=== PATIENT | female | born 1965 | race Caucasian/White ===

== ENCOUNTER 2019-03-20 11:53 | Day surgery (SDC) | payer OTHER ==
[~2019-03-20 11:53] MED LIST: ACETAMINOPHEN 1,000 MG/100 ML BTL IVPB ONE; CEFAZOLIN 2 Gram 2 GM/50 ML BAG IVPB SCH; MORPHINE SULFATE 4 MG/ML VIAL ONE
[2019-03-20] MEDS ORDERED: LIDOCAINE 2% MDV (20MG/ML) 20ML VIAL IV ONE (11:54)
[2019-03-20] MEDS ORDERED: HYDROMORPHONE HCL 2 MG/ML VIAL IV ONE (11:54)
[2019-03-20] MEDS ORDERED: ONDANSETRON HCL IV 4 MG/2 ML VIAL IVP ONE (11:54)
[2019-03-20] MEDS ORDERED: PROPOFOL 10 MG/ML VIAL IV ONE (11:54)
[2019-03-20] MEDS ORDERED: SEVOFLURANE 250 ML INH ONE (11:54)
[2019-03-20] MEDS ORDERED: MIDAZOLAM HCL 2MG/2ML VIAL IV ONE (11:54)
[2019-03-20] MEDS ORDERED: RINGERS SOLUTION,LACTATED 1,000 ML IV ONE (12:40)
[2019-03-20] MEDS ORDERED: METHYLPREDNISOLONE 40MG/VIAL IM ONE (14:15)
[2019-03-20] MEDS ORDERED: MORPHINE SULFATE 5 MG/ML VIAL IM ONE (14:15)
[2019-03-20] MEDS ORDERED: BUPIVACAINE 0.5% W/EPI MPF 30 ML VIAL SQ ONE (14:15)
--- NOTE | 2019-03-22 07:50 | Operative Note ---
DATE OF SURGERY: 03/20/2019 PREOPERATIVE DIAGNOSIS: Internal derangement of the right knee. POSTOPERATIVE DIAGNOSES: 1. 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 2. Flap tear involving the anterior horn of the medial meniscus. 3. Flap tear involving the anterior horn of the lateral meniscus. OPERATION: Right knee arthroscopy with partial medial and lateral meniscectomies. SURGEON: Manuel Campbell M.D. ANESTHESIA: General. PREPARATION: Chloraprep. INDIVIDUAL CONSIDERATIONS: None. PROCEDURE: The patient was taken to the operating room and placed supine on the operating room table. She had a successful induction with general anesthetic. Her right lower extremity was prepped and draped in the usual fashion. The patient had a superior lateral inflow cannula placed. The skin was infiltrated with 0.5% Marcaine with epinephrine prior. Next, serous effusion was drained. The knee was inflated with normal saline. An inferior medial and an inferior lateral portal were made in a similar fashion. The arthroscope was introduced through the inferior lateral portal up into the pouch. The patellofemoral compartment was basically essentially normal, maybe some small grade 3 change essentially in the notch and in the patella essentially, which was smoothed with a shaver. There was a fairly large impinging fat pad, which was debrided and a small plica debrided. No loose bodies were seen in the pouch near either gutter. Medially, she had an obvious unstable flap at the anterior horn of the medial meniscus, which was debrided back to a stable rim with a shaver. The articular cartilage and the remainder of the meniscus was normal. The notch and the cruciates were normal. In a similar fashion, she had a flap involving the anterior horn which was large in the lateral meniscus and this was debrided back to a stable rim with basket forceps and a shaver. The reminder of the meniscus, articular cartilage, and popliteus tendon were normal. The knee was then irrigated out with saline to remove loose floating debris. The portals were closed with gustavo. 20 mL of 0.25% plain Marcaine along with 4 mg of morphine and 40 mg of Depo-Medrol were injected into the knee and a sterile bulky compressive dressing was applied. The patient tolerated the procedures well. The needle and sponge counts were correct. Estimated blood loss was minimal. She was taken back to recovery in good condition. There were no complications. [facility]
== END 2019-03-20 15:08 | disposition home or self-care (01) ==
LOC: SUR 11:53
PROVIDERS: ATTEND Orthopaedic Surgery
DX: S83.281A Other tear of lateral meniscus, current injury, right knee, initial encounter (principal); S83.241A Other tear of medial meniscus, current injury, right knee, initial encounter; M22.41 Chondromalacia patellae, right knee; I10 Essential (primary) hypertension
CPT/HCPCS: 84132; J1030; J2270; J2405; J7120

== ENCOUNTER 2019-03-26 13:51 | Day surgery (SDC) | payer OTHER ==
[2019-03-26] MEDS ORDERED: PROPOFOL 10 MG/ML VIAL IV ONE (13:52)
[2019-03-26] MEDS ORDERED: MIDAZOLAM HCL 2MG/2ML VIAL IV ONE (13:52)
[2019-03-26] MEDS ORDERED: DEXAMETHASONE 4 MG/ML 1ML VIAL IVP ONE (13:52)
[2019-03-26] MEDS ORDERED: FENTANYL PF 100MCG/2ML VIAL IV ONE (13:52)
[2019-03-26] MEDS ORDERED: ONDANSETRON HCL IV 4 MG/2 ML VIAL IVP ONE (13:52)
[2019-03-26] MEDS ORDERED: LIDOCAINE 2% MDV (20MG/ML) 20ML VIAL IV ONE (13:52)
[2019-03-26] MEDS ORDERED: SEVOFLURANE 250 ML INH ONE (13:52)
[2019-03-26] MEDS ORDERED: RINGERS SOLUTION,LACTATED 1,000 ML IV ONE ×2 (14:10→15:02)
[2019-03-26] MEDS ORDERED: BUPIVACAINE 0.5% W/EPI MPF 30 ML VIAL SQ ONE (14:55)
[2019-03-26] MEDS ORDERED: HYDROCODONE/APAP 7.5/325MG TABLET PO ONE (15:31)
[2019-03-26] MEDS ORDERED: FENTANYL PF 100MCG/2ML VIAL IVP ONE ×2 (15:31)
--- NOTE | 2019-03-28 07:50 | Operative Note ---
DATE OF SURGERY: 03/26/2019 PREOPERATIVE DIAGNOSIS: Septic right knee. POSTOPERATIVE DIAGNOSIS: Septic right knee. OPERATION: Right knee arthroscopy with irrigation, debridement, and complete synovectomy. STAFF SURGEON: Manuel Campbell MD ANESTHESIA: General. PREPARATION: Chloraprep. INDIVIDUAL CONSIDERATIONS: None. PROCEDURE: The patient was taken to the operating room, placed supine on the operating room table. She had a successful induction of a general anesthetic. The right lower extremity was prepped and draped in the usual fashion. The patient's superolateral inflow cannula was used from the previous arthroscopy. Once in the knee, I drained purulent-appearing bloody fluid. The knee was then inflated with normal saline. An inferomedial and an inferolateral portal were made using the previous portals. The arthroscope was introduced through the inferolateral portal up into the pouch. There was [id number] synovitis, fibrinous debris and clot. The patellofemoral joint looked like it had previous grade 3 changes which had debrided. Medial compartment had some arthritic changes on the femur and had a status post resection of most of the posterior horn of the medial meniscus. The anterior horn of the lateral meniscus had been resected. The cruciates were normal. Articular cartilage on the lateral side was normal. I then introduced a shaver and did a synovectomy in both gutters, the pouch, and irrigated out the fibrinous debris and then proceeded to irrigate out further 6 liters of saline mixed with a little bit of Betadine. I placed 2 Hemovacs through the superolateral portal up into the pouch. The remaining portals were closed with gustavo. A sterile bulky compressive dressing was applied. She was taken back to recovery in good condition. There were no complications. [facility]
== END 2019-03-26 16:03 | disposition home or self-care (01) ==
LOC: SUR 13:51
PROVIDERS: ATTEND Orthopaedic Surgery
DX: M00.9 Pyogenic arthritis, unspecified (principal); I10 Essential (primary) hypertension
CPT/HCPCS: J2405; J7120